=== PATIENT | female | born 1960 ===

== ENCOUNTER 2024-05-23 08:55 | Outpatient (AMB) | payer MEDICARE, BC, SELFPAY ==
--- NOTE | 2024-05-23 08:56 | A.OFFVIS_ITS ---
Vital Signs 05/23/24 09:06 Height 5 ft 2.5 in Weight 174 lb 2.643 oz BMI 31.3 BP 108/66 Blood Pressure Location Rt brachial Position Sitting Pulse 75 Pulse Source Pulse Oximeter Intake Visit Reasons: T2DM/CONFIRMED Intake Note: NEW Patient presents today to establish treatment for Type 2 Diabetes Mellitus: Last Diabetic eye exam was on: 05/2024, Glaucoma Last Podiatry exam was on: Does not see a Eyelet Operator Most recent HbA1c: 6.3%, 05/23/2024 Random Glucose- 119 mg/dL, Today Food Packer Required: No Accompanied by: Self / Same As Patient Allergies Penicillins Allergy (Mild, Verified 05/23/24 08:59) Unknown HPI Comments Details: This is a 63-year-old female with a past medical history of type 2 diabetes, hypertriglyceridemia, vitamin-D deficiency, cervical spondylosis and obesity presenting for a consult for diabetic management. She was diagnosed with diabetes about 6 years ago. She has a family history of diabetes (PGF and paternal aunt). No known family history of type 1 diabetes. Hemoglobin a1c today is 6.3%. Current medication regimen: Metformin 500 mg twice daily. Compliance issues: none Diet: Breakfast-Coffee with 1 tbsp of half and half and equal. She drinks 2 cups per day total. She doesn't follow a set schedule. Her is battling a rare form of sarcoma so they are busy with medical appointments. She eats a lot of veggies and salads. Occasionally eats a can of envelope folding machine operator boyardee if she is in a skinner. Eats chicken for protein. She might eat a lollipop during day. She enjoys all fruits except for misty. Drinks diet coke and no juices. She drinks alcohol rarely. She does not smoke. She lost weight initially with weight watchers, and she still following the diet, but she has gained 10 lb back, and she is very frustrated. She exercises when she is able to with her schedule. Hypoglycemia symptoms: None Hyperglycemia symptoms: None Eye exam: Up-to-date Microvascular complications: none Macrovascular complications: none Hypertension: No Hypertriglyceridemia treated with fenofibrate. LDL at goal <100. ROS: Constitutional: No unexplained weight loss, fever, chills or fatigue. Respiratory: No shortness of breath, cough or sputum production. Cardiovascular: No chest pain, chest pressure or chest discomfort. No palpitations or pedal edema. Gastrointestinal: No anorexia, nausea, vomiting or diarrhea. No abdominal pain. Neurologic: No headache, dizziness, syncope, unilateral weakness, ataxia, numbness or tingling in the extremities. Skin: No rash or wounds. Physical exam: Constitutional: Alert, in no distress. Eyes: Pupils are equal, round and reactive to ligh Neck: Supple, Full range of motion. No lymphadenopathy. No palpable thyroid masses. Respiratory: Clear to auscultation. Cardiovascular: S1 S2 regular. No murmurs. Right foot: Warm and well perfused. No clubbing, cyanosis or edema. DP pulse 3+. Intact vibratory sensation. Intact sensation to monofilament. No open wounds. Left foot: Warm and well perfused. No clubbing, cyanosis or edema. DP pulse 3+. Intact vibratory sensation. Intact sensation to monofilament. No open wounds. [facility] Medical History (Updated 05/23/24 @ 10:25 by PRINCE Mcneal) Hypertriglyceridemia Type II diabetes mellitus Encounter for screening for diabetes mellitus Vitamin D deficiency Screen for colon cancer Pain in upper limb Obesity, class 1 Hyperlipidemia Diabetes Cervical spondylosis without myelopathy Surgical History (Updated 05/23/24 @ 09:03 by JAMES Story) History of surgery Hx of shoulder surgery Family History (Updated 05/23/24 @ 09:04 by JAMES Story) Father No problems noted. Mother No problems noted. Social History (Updated 05/23/24 @ 09:04 by JAMES Story) Alcohol intake: current Alcohol intake frequency: holidays/special occasions only Physical Exam Vital Signs: Last Vital Signs Pulse 75 05/23/24 09:06 BP 108/66 05/23/24 09:06 BMI result Body Mass Index 31.3 Results AMB Hemoglobin A1c AMB Hemoglobin A1c 6.3 % Last Edit by JAMES Story on 05/23/24 09:35 Results Reviewed Results Reviewed: External labs 09/21/2023 TSH 2.23 Vitamin-D 55.8 Creatinine 0.7 Estimated GFR 98 AST 22 ALT 23 Alkaline phosphatase 55 Total cholesterol 167 Triglycerides 105 HDL cholesterol 51 LDL cholesterol 95 Hemoglobin A1c 6.1% Assessment & Plan Assessment & Plan (1) Type II diabetes mellitus: Code(s): E11.9 - Type 2 diabetes mellitus without complications Category: Medical Qualifiers: Diabetes mellitus complication status: without complication Diabetes mellitus halfway insulin use: without halfway use Qualified Code(s): E11.9 - Type 2 diabetes mellitus without complications Plan: In summary this is a 63-year-old female with controlled type 2 diabetes with no known complications. Discussed pathophysiology of Type II Diabetes Mellitus with the patient in detail.? 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 Discussed lifestyle modification with the patient. Provided patient with the diabetes.org website so she can access recipes and recommendations for diabetic patients. Recommended 30 minutes of moderately vigorous exercise 5 days per week to promote weight loss. Ordered microalbumin urine, B12 level since she is on metformin and screening BNP. If BNP is over 50 we will recommend echocardiogram. The patient has tried weight watchers with varying levels of success. She would like to try a GLP 1 and prefers an oral agent. I prescribed her dialysis. She denies contraindications to the medication. Side effects reviewed in detail. When she starts this she was instructed to decrease metformin to 500 mg once a day. If we titrates Ryebelsus to 7 mg or if she develops low blood sugar we will stop metformin. I provided the patient with a glucometer so she can monitor her blood sugar. Continue annual eye exams and regular foot exams. She is referred to the dietitian. Due to her schedule she will not be able to set this up until 2024, and the referral is dated as such. (2) Hypertriglyceridemia: Code(s): E78.1 - Pure hyperglyceridemia Category: Medical Plan: Well-controlled. Continue fenofibrate. (3) Obesity, class 1: Code(s): E66.811 - Obesity, class 1 Category: Medical Plan: See #1. Continue lifestyle modifications and start GLP 1. Plan Follow up in 4 weeks for a diabetic medication check. Orders: Orders B Type Natriuretic Peptide Today E11.9 - Type 2 diabetes mellitus without complications Microalbumin, Random (w Creat) Today E11.9 - Type 2 diabetes mellitus without complications Vitamin B12 Today E11.9 - Type 2 diabetes mellitus without complications AMB Hemoglobin A1c Today Z13.1 - Encounter for screening for diabetes mellitus Referrals Senior Art Director Nutrition Referral E11.9 - Type 2 diabetes mellitus without complications Medications: New blood sugar diagnostic (OneTouch Verio test strips) Use as directed to check blood glucose once daily for Type II diabetes mellitus. 100 ea 5RF blood-glucose meter (OneTouch Verio Flex Meter) Use as directed to check blood glucose once daily for Type II diabetes mellitus. 1 ea 0RF lancets (OneTouch Delica Plus Lancet) Use as directed to check blood glucose once daily for Type II diabetes mellitus. 100 ea 5RF semaglutide (Rybelsus) Administer on an empty stomach, =30 minutes before the first food, beverage, or other oral medications of the day with =4 oz of plain water only. 3 mg PO DAILY 30 days 30 tabs 0RF Patient Instructions: Diabetes.org If you experience low blood sugar, treat this by eating a chewable fruit candy like skittles or jelly beans (about 8 pieces), 4 ounces (1/2 cup) of fruit juice (not diet), 1 tablespoon of honey or 4 glucose tablets. If your blood sugar is under 50, take double the amount of one of the above. Recheck your blood sugar in 15 minutes. I sent a glucometer to your pharmacy. Fasting blood sugar target it 70-130. When you start Rybelsus 3 mg once daily, decrease Metformin to 1 tablet once daily. After the first month we will see if we can stop Metformin. You will be contacted to schedule the appointment the high speed operator. Please have labs done at [facility]. Printed orders given to you. Coding Level of Care Code New Pt Level 5 (84997) Complex EM visit Add On G2211 Diagnoses Type 2 diabetes mellitus without complication, without long-term current use of insulin E11.9 Diabetes mellitus complication status: without complication Diabetes mellitus halfway insulin use: without petroleum terminal plant operator use Hypertriglyceridemia E78.1 Obesity, class 1 E66.811 Time Spent (min) 68 Comment Direct patient care and education, chart review, completing documentation
[2024-05-23 09:06] VITALS: BP 108/66; PULSE 75; BMI 31.3
[2024-05-23 09:19] LABS: Glucose, Whole Blood 119 mg/dL (60-115)
== END 2024-05-23 10:02 | disposition home or self-care (01) ==
PROVIDERS: PCP Internal Medicine; Visit Provider Physician Assistant Medical
DX: E11.9 Type 2 diabetes mellitus without complications (principal); E78.1 Pure hyperglyceridemia; E66.811 Obesity, class 1; Z13.1 Encounter for screening for diabetes mellitus

== ENCOUNTER → 2024-05-23 08:55 | Outpatient (BNVA) | payer MEDICARE, BC, SELFPAY | PROVIDERS: PCP Internal Medicine; Visit Provider Physician Assistant Medical | DX: E11.9 Type 2 diabetes mellitus without complications (principal); E78.1 Pure hyperglyceridemia; E66.811 Obesity, class 1 | CPT/HCPCS: 82947; 83036; 99202 ==

== ENCOUNTER 2024-08-12 11:10 | Outpatient (AMB) | payer MEDICARE, BC, SELFPAY ==
--- NOTE | 2024-08-12 11:23 | A.OFFVIS_ITS ---
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 She was diagnosed with diabetes about 6 years ago. She has a family history of diabetes (PGF and paternal aunt). No known family history of type 1 diabetes. Since our visit in May, her on 06/20/24 from sarcoma. He had 5 different cancer battles in his lifetime. They were over 30 years. She is grieving. She feels well supported by friends and family. She has a daughter and cares for her daughter's Divehi bulldog. Hemoglobin a1c 6.3% 05/23/24. Current medication regimen: Metformin 500 mg once daily and Rybelsus 3 mg daily. Compliance issues: none She drinks alcohol rarely. She does not smoke. She initially had lost weight with weight watchers, but she gained back weight even though she was still following the diet. She lost 7 lb since she saw me in May related to decreased appetite secondary to grief. She would like to work on weight loss and has plans to see the compliance aide in 2024 and would like to increase Rybelsus. Hypoglycemia symptoms: None Hyperglycemia symptoms: None Eye exam: Up-to-date Microvascular complications: none Macrovascular complications: none Hypertension: No Hypertriglyceridemia treated with fenofibrate. LDL at goal <100. ROS: Constitutional: No unexplained weight loss Gastrointestinal: No anorexia, nausea, vomiting or diarrhea. No abdominal pain. Neurologic: No headache, dizziness, syncope, unilateral weakness, ataxia, numbness or tingling in the extremities. Skin: No rash or wounds. Physical exam: Constitutional: Alert, in no distress. Respiratory: Clear to auscultation. Cardiovascular: S1 S2 regular. No murmurs. [facility] Medical History (Updated 05/23/24 @ 10:25 by PRINCE Mcneal) Hypertriglyceridemia Type II diabetes mellitus Encounter for screening for diabetes mellitus Vitamin D deficiency Screen for colon cancer Pain in upper limb Obesity, class 1 Hyperlipidemia Diabetes Cervical spondylosis without myelopathy Surgical History (Updated 05/23/24 @ 09:03 by JAMES Story) History of surgery Hx of shoulder surgery Family History (Updated 05/23/24 @ 09:04 by JAMES Story) Father No problems noted. Mother No problems noted. Social History (Updated 05/23/24 @ 09:04 by JAMES Story) Alcohol intake: current Alcohol intake frequency: holidays/special occasions only Physical Exam Vital Signs: BMI result Body Mass Index 30.2 Assessment & Plan Assessment & Plan (1) Type II diabetes mellitus: Code(s): E11.9 - Type 2 diabetes mellitus without complications Category: Medical Qualifiers: Diabetes mellitus complication status: without complication Diabetes mellitus care home insulin use: without care home use Qualified Code(s): E11.9 - Type 2 diabetes mellitus without complications (2) Obesity, class 1: Code(s): E66.811 - Obesity, class 1 Category: Medical Plan In summary this is a 64-year-old female with controlled type 2 diabetes with no known complications. Discussed pathophysiology of Type II Diabetes Mellitus with the patient in detail.? I explained the care home risks and complications associated with uncontrolled diabetes including nephropathy, neuropathy, peripheral vascular disease, retinopathy, increased risk of heart disease and stroke.? Discussed lifestyle modification with the patient. Stop Metformin once you start Rybelsus 7 mg daily. Side effects reviewed. She had a glucometer to monitor her blood sugar. Reviewed target ranges. Continue annual eye exams and regular foot exams. She will see the compliance aide in 2024. Follow up in 6 weeks for a diabetic medication check. Medications: New semaglutide (Rybelsus) 7 mg PO DAILY 90 tabs 0RF Discontinued semaglutide (Rybelsus) Administer on an empty stomach, =30 minutes before the first food, beverage, or other oral medications of the day with =4 oz of plain water only. Discontinued Reason: Doctor's Order 3 mg PO DAILY 30 days 30 tabs 0RF Coding Level of Care Code Est Pt Level 4 (25507) Complex EM visit Add On G2211 Diagnoses Type 2 diabetes mellitus without complication, without long-term current use of insulin E11.9 Diabetes mellitus complication status: without complication Diabetes mellitus ad terminal makeup operator insulin use: without care home use Obesity, class 1 E66.811
[2024-08-12 11:24] VITALS: BP 102/68; PULSE 76; BMI 30.2
[2024-08-12 11:30] LABS: Glucose, Whole Blood 105 mg/dL (60-115)
== END 2024-08-12 11:55 | disposition home or self-care (01) ==
PROVIDERS: PCP Internal Medicine; Visit Provider Physician Assistant Medical
DX: E11.9 Type 2 diabetes mellitus without complications (principal); E66.811 Obesity, class 1

== ENCOUNTER → 2024-08-12 11:10 | Outpatient (BNVA) | payer MEDICARE, BC, SELFPAY | PROVIDERS: PCP Internal Medicine; Visit Provider Physician Assistant Medical | DX: E11.9 Type 2 diabetes mellitus without complications (principal); E66.811 Obesity, class 1; Z68.30 Body mass index [BMI] 30.0-30.9, adult | CPT/HCPCS: 82947; 99212 ==

== ENCOUNTER 2024-09-23 10:52 | Outpatient (AMB) | payer MEDICARE, BC, SELFPAY ==
--- NOTE | 2024-09-23 11:03 | MHC.OFFVIS ---
Vital Signs 09/23/24 11:07 Height 5 ft 2.5 in Weight 163 lb 12.855 oz BMI 29.5 BP 92/66 Blood Pressure Location Rt brachial Position Sitting Pulse 75 Pulse Source Pulse Oximeter Pulse Oximetry (%) 96 Oxygen Delivery Method Room Air Intake Visit Reasons: Type II diabetes Intake Note: Patient present today to follow up on Type 2 Diabetes Mellitus. Last Diabetic Eye exam: 05/2024, Glaucoma Last Podiatry Visit: Does not see a Chair Car Driver Random Glucose: 91 mg/dl HgA1C: 5.8% 09/23/24 Steak Sauce Maker Required: No Accompanied by: Self / Same As Patient Allergies Penicillins Allergy (Mild, Verified 09/23/24 11:07) Unknown HPI Comments Details: This is a 64-year-old female with a past medical history of type 2 diabetes, hypertriglyceridemia, vitamin-D deficiency, cervical spondylosis and obesity presenting for diabetic management. She was diagnosed with diabetes about 6 years ago. She has a family history of diabetes (PGF and paternal aunt). No known family history of type 1 diabetes. Her on 06/20/24 from sarcoma. He had 5 different cancer battles in his lifetime. They were over 30 years. She is grieving. She feels well supported by friends and family. She has a daughter and cares for her daughter's Sinhala bulldog. Hemoglobin a1c 5.8% today 09/23/24. Hemoglobin a1c 6.3% 05/23/24. All readings she wrote down from her glucometer are within target range. Current medication regimen: Rybelsus 7 mg. Metformin discontinued after Rybelsus was increased. Compliance issues: She is compliant. She endorses some nausea that comes and goes on rybelsus and very mild constipation. She drinks alcohol rarely. She does not smoke. She's lost 4 pounds since her visit on 08/12/24. Hypoglycemia symptoms: None Hyperglycemia symptoms: None Eye exam: Up-to-date Microvascular complications: none Macrovascular complications: none Hypertension: No Hypertriglyceridemia treated with fenofibrate. LDL at goal <100. ROS: Constitutional: No unexplained weight loss Gastrointestinal: No anorexia, nausea, vomiting or diarrhea. No abdominal pain. Neurologic: No headache, dizziness, syncope, unilateral weakness, ataxia, numbness or tingling in the extremities. Skin: No rash or wounds. Physical exam: Constitutional: Alert, in no distress. Respiratory: Clear to auscultation. Cardiovascular: S1 S2 regular. No murmurs. [facility] Medical History (Updated 05/23/24 @ 10:25 by PRINCE Mcneal) Hypertriglyceridemia Type II diabetes mellitus Encounter for screening for diabetes mellitus Vitamin D deficiency Screen for colon cancer Pain in upper limb Obesity, class 1 Hyperlipidemia Diabetes Cervical spondylosis without myelopathy Surgical History History of surgery Hx of shoulder surgery Family History Father No problems noted. Mother No problems noted. Social History Alcohol intake: current Alcohol intake frequency: holidays/special occasions only Physical Exam Vital Signs: Last Vital Signs Pulse 75 09/23/24 11:07 BP 92/66 09/23/24 11:07 Pulse Ox 96 09/23/24 11:07 Oxygen Delivery Method Room Air 09/23/24 11:07 BMI result Body Mass Index 29.5 Results AMB Hemoglobin A1c AMB Hemoglobin A1c 5.8 % Last Edit by JAMES Chaparro on 09/23/24 11:35 Results Reviewed Results Reviewed: Laboratory Last Values Glucose (Clinic) 91 mg/dL (60-115) 09/23/24 11:14 Hgb A1c (Clinic) 5.8 % (4.0-6.0) 09/23/24 11:17 Assessment & Plan Assessment & Plan (1) Type II diabetes mellitus: Code(s): E11.9 - Type 2 diabetes mellitus without complications Category: Medical Qualifiers: Diabetes mellitus complication status: without complication Diabetes mellitus residential insulin use: without bus and rail operator use Qualified Code(s): E11.9 - Type 2 diabetes mellitus without complications Plan In summary this is a 64-year-old female with controlled type 2 diabetes with no known complications. Discussed pathophysiology of Type II Diabetes Mellitus with the patient in detail.? I explained the residential risks and complications associated with uncontrolled diabetes including nephropathy, neuropathy, peripheral vascular disease, retinopathy, increased risk of heart disease and stroke.? Discussed lifestyle modification with the patient. We discussed switching to another GLP 1, but she wants to give it a bit more time to see if side effects improved since she has only taken it for a month. We discussed meals from fluids by 30 minutes and eating smaller meals and stopping eating when she feels full to avoid nausea. I will prescribe ondansetron to use as needed for the next month for nausea, but if it persists then I will change her to a different medication or reduce the dosage. She had a glucometer to monitor her blood sugar. Reviewed target ranges. We reviewed treatment of hypoglycemia. Written instructions given to patient. If she experiences low blood sugars she was instructed to call to reduce the dose of her medication. Continue annual eye exams and regular foot exams. She will see the advice line rn in 2024. No fib 4 value on file. She will have lab work drawn. Follow up in 3 months for type 2 diabetes. Orders: Orders AMB Hemoglobin A1c Today E11.9 - Type 2 diabetes mellitus without complications Platelet Count Today E11.9 - Type 2 diabetes mellitus without complications Comprehensive Met. Panel Today E11.9 - Type 2 diabetes mellitus without complications Referrals [employer] Senator Nutrition Referral E11.9 - Type 2 diabetes mellitus without complications Medications: New ondansetron HCl 4 mg PO Q8H PRN 30 tabs 0RF nausea and vomiting Refilled semaglutide (Rybelsus) 7 mg PO DAILY 90 tabs 1RF Patient Instructions: Hemoglobin a1c 5.8% today 09/23/24. Hemoglobin a1c 6.3% 05/23/24. All recorded blood sugars reviewed are within the target range. If you experience low blood sugar, treat this by eating a chewable fruit candy like skittles or jelly beans (about 8 pieces), 4 ounces (1/2 cup) of fruit juice (not diet), 1 tablespoon of honey or 4 glucose tablets. If your blood sugar is under 55, take double the amount of one of the above. Recheck your blood sugar in 15 minutes. If you experience low blood sugars please call me so I can reduce the dose of Rybelsus. Coding Level of Care Code Est Pt Level 4 (80981) Complex EM visit Add On G2211 Diagnoses Type 2 diabetes mellitus without complication, without long-term current use of insulin E11.9 Diabetes mellitus complication status: without complication Diabetes mellitus bus and rail operator insulin use: without residential use
[2024-09-23 11:07] VITALS: BP 92/66; PULSE 75; O2SAT 96; BMI 29.5
[2024-09-23 11:19] LABS: Glucose, Whole Blood 91 mg/dL (60-115)
== END 2024-09-23 11:39 | disposition home or self-care (01) ==
PROVIDERS: PCP Internal Medicine; Visit Provider Physician Assistant Medical
DX: E11.9 Type 2 diabetes mellitus without complications (principal)

== ENCOUNTER 2024-09-23 11:43 | Outpatient (REF) | payer MEDICARE, SELFPAY ==
--- OUTSIDE RECORDS SUMMARY | 2024-09-23 13:19 | XMS_ITS | Patient Health Record ---
Author Organization [facility] Address [address] [place] [address] Care Team Providers Care Owner/Photographer Name Role Phone Oneida Gomez Unavailable [phone] Allergies Allergen (clinical drug ingredient) Drug/Non Drug Allergy documented on EMR Reaction Allergy Type Onset Date Status Penicillin RASH, TIGHTNESS OF JOINTS Drug Allergy Active Reason For Referral No Information Medications Medication SIG (Take, Route, Frequency, Duration) Notes Start Date End Date Status Fenofibrate Pt not sure of dose Active Aspirin 81 MG 1 tablet Orally Once a day Active NexIUM 2 DAILY Active Neurontin 1500 Active Social History Tobacco Use: Social History Observation Description Date Details (start date - stop date) Former Smoker NA - NA Tobacco Use/Smoking Question Answer Notes Are you a former smoker How long has it been since you last smoked? 5-10 years Alcohol Screen (Audit-C) Question Answer Notes Did you have a drink contain ing alcohol in the past year? Yes How often did you have a dri nk containing alcohol in the past year? Monthly or less (1 point) How many drinks did you have on a typical day when you were drinking in the past year? 1 or 2 drinks (0 point) How often did you have 6 or more drinks on one occasion in the past year? Never (0 point) Points 1 Interpretation Negative Plan Of Treatment Pending Test Test Name Order Date THIN PREP,HPV,CHRISTEN IF HPV+ (>29YR)(SCRN) 07/10/2017 Next Appt Details Provider Name:Oneida au, 12/11/2024 02:00:00 PM, [address], [address], [place], [address], Insurance Providers Payer Name Payer Address Payer Phone Subscriber Number Group Number Insured Name Patient Relationship to Insured Coverage Start Date Coverage End Date MEDICARE [address] [place] [id number] [phone] JAKOB ENCARNACION Self - patient is the insured BC OF [facility] [address] [place] [address] [id number] GABRIELA ENCARNACION Spouse - patient is the spouse of the insured Medical (General) History Surgical History Surgery Date(Month/Year) SHOULDER SUGERY AND AGAIN IN 2010 2009 ARM SURGERY - ULNA NERVE AND REPEATED IN 2004 & 2006 2004 SHAVED BONE - LITTLE TOE NODE REMOVED - THROAT Hospitalization History Reason Date(Month/Year) CHILD
[2024-09-23 13:28] LABS: Platelet Count 340 X10*3/uL (160-400)
[2024-09-23 13:43] LABS: Alanine Aminotransferase 30 U/L (0-31); Albumin Level 4.3 g/dL (3.5-5.0); Alkaline Phosphatase 59 U/L (39-117); Anion Gap 9 (12-20); Aspartate Amino Transferase 32 U/L (5-31); Bilirubin Total 0.6 mg/dL (0.0-1.0); Blood Urea Nitrogen 16 mg/dL (9-16); Calcium 9.3 mg/dL (8.4-10.2); Carbon Dioxide 24 mmol/L (22-29); Chloride 111 mmol/L (96-108); Estimated Glomerular Filt Rate > 60; Glucose Random 96 mg/dL (60-115); Potassium 4.4 mmol/L (3.3-5.1); Sodium 140 mmol/L (135-145); Total Protein 7.2 g/dL (6.5-8.0)
== END 2024-09-23 11:44 | disposition home or self-care (01) ==
LOC: HO.10HDL 11:43
PROVIDERS: Visit Provider Physician Assistant Medical
DX: E11.9 Type 2 diabetes mellitus without complications (principal)
CPT/HCPCS: 36415; 80053; 82947; 83036; 85049; 99212

== ENCOUNTER 2024-12-23 11:02 | Outpatient (AMB) | payer MEDICARE, BC, SELFPAY ==
--- NOTE | 2024-12-23 11:04 | A.OFFVIS_ITS ---
Vital Signs 12/23/24 11:06 Height 5 ft 2.5 in Weight 153 lb 14.122 oz BMI 27.7 BP 92/60 Blood Pressure Location Rt brachial Position Sitting Pulse 86 Pulse Source Pulse Oximeter Pulse Oximetry (%) 97 Oxygen Delivery Method Room Air Intake Visit Reasons: Type 2 DM Intake Note: Patient present today to follow up on Type 2 Diabetes Mellitus. Last Diabetic Eye exam: 05/2024, Glaucoma Last Podiatry Visit: Does not see a Employee Benefits Insurance Agent Random Glucose: 93 mg/dl HgA1C: 5.8% 12/23/2024 Manager Spring Required: No Accompanied by: Self / Same As Patient Allergies Penicillins Allergy (Mild, Verified 12/23/24 11:07) Unknown HPI Comments Details: This is a 64-year-old female with a past medical history of type 2 diabetes, hypertriglyceridemia, vitamin-D deficiency, cervical spondylosis and obesity presenting for diabetic management. She was diagnosed with diabetes about 6.5 years ago. She has a family history of diabetes (PGF and paternal aunt). No known family history of type 1 diabetes. Her on 06/20/24 from sarcoma. He had 5 different cancer battles in his lifetime. They were over 30 years. She is grieving. She feels well supported by friends and family. She has a daughter and cares for her daughter's Indonesian bulldog. She is walking for exercise. Hemoglobin a1c 5.8% today. All readings she wrote down from her glucometer are within target range. See scanned report. Current medication regimen: Rybelsus 7 mg. Metformin discontinued after Rybelsus was increased. Compliance issues: She is compliant. She endorses some nausea that comes and goes on rybelsus. She drinks alcohol rarely. She does not smoke. She's lost 21 lb since June 2024. She is very happy with her progress. Hypoglycemia symptoms: None Hyperglycemia symptoms: None Eye exam: Hf-wi-hcha-she has to have a stent placed for glaucoma in her right eye. They will discuss this further at her follow up in February. She goes to [facility]. She has no ophthalmic complications from diabetes. Microvascular complications: none Macrovascular complications: none Hypertension: No Hypertriglyceridemia treated with fenofibrate. LDL at goal <100. ROS: Constitutional: No unexplained weight loss Gastrointestinal: No anorexia, nausea, vomiting or diarrhea. No abdominal pain. Neurologic: No headache, dizziness, syncope, unilateral weakness, ataxia, numbness or tingling in the extremities. Skin: No rash or wounds. Physical exam: Constitutional: Alert, in no distress. Respiratory: Clear to auscultation. Cardiovascular: S1 S2 regular. No murmurs. [facility] Medical History (Updated 05/23/24 @ 10:25 by PRINCE Mcneal) Hypertriglyceridemia Type II diabetes mellitus Encounter for screening for diabetes mellitus Vitamin D deficiency Screen for colon cancer Pain in upper limb Obesity, class 1 Hyperlipidemia Diabetes Cervical spondylosis without myelopathy Surgical History History of surgery Hx of shoulder surgery Family History Father No problems noted. Mother No problems noted. Social History Alcohol intake: current Alcohol intake frequency: holidays/special occasions only Physical Exam Vital Signs: BMI result Body Mass Index 27.7 Results AMB Hemoglobin A1c AMB Hemoglobin A1c 5.8 % Last Edit by JAMES Chaparro on 12/23/24 11:24 Results Reviewed Results Reviewed: Laboratory Last Values Glucose (Clinic) 93 mg/dL (60-115) 12/23/24 11:12 External labs 09/21/2023 TSH 2.23 Vitamin-D 55.8 Creatinine 0.7 Estimated GFR 98 AST 22 ALT 23 Alkaline phosphatase 55 Total cholesterol 167 Triglycerides 105 HDL cholesterol 51 LDL cholesterol 95 Hemoglobin A1c 6.1% Assessment & Plan Assessment & Plan (1) Type II diabetes mellitus: Code(s): E11.9 - Type 2 diabetes mellitus without complications Category: Medical Qualifiers: Diabetes mellitus continuous churn buttermaker insulin use: without fdc use Diabetes mellitus complication status: without complication Qualified Code(s): E11.9 - Type 2 diabetes mellitus without complications Plan In summary this is a 64-year-old female with controlled type 2 diabetes with no known complications. Discussed pathophysiology of Type II Diabetes Mellitus with the patient in detail.? I explained the fdc risks and complications associated with uncontrolled diabetes including nephropathy, neuropathy, peripheral vascular disease, retinopathy, increased risk of heart disease and stroke.? Discussed lifestyle modification with the patient. Continue Rybelsus 7 mg daily. She had a glucometer to monitor her blood sugar. Reviewed target ranges. We reviewed treatment of hypoglycemia. If she experiences low blood sugars she was instructed to call to reduce the dose of her medication. No fib 4 value on file. She will have lab work drawn. Follow up in April 2025 for type 2 diabetes. Orders: Orders Platelet Count Today E11.9 - Type 2 diabetes mellitus without complications AMB Hemoglobin A1c Today E11.9 - Type 2 diabetes mellitus without complications Creatinine Today E11.9 - Type 2 diabetes mellitus without complications Alanine Aminotransferase Today E11.9 - Type 2 diabetes mellitus without complications Aspartate Amino Transferase Today E11.9 - Type 2 diabetes mellitus without complications Lipid Panel Today E78.5 - Hyperlipidemia, unspecified Medications: Refilled semaglutide (Rybelsus) 7 mg PO DAILY 90 tabs 1RF Coding Level of Care Code Est Pt Level 4 (06309) Complex EM visit Add On G2211 Diagnoses Type 2 diabetes mellitus without complication, without long-term current use of insulin E11.9 Diabetes mellitus fdc insulin use: without continuous churn buttermaker use Diabetes mellitus complication status: without complication
[2024-12-23 11:06] VITALS: BP 92/60; PULSE 86; O2SAT 97; BMI 27.7
[2024-12-23 11:18] LABS: Glucose, Whole Blood 93 mg/dL (60-115)
--- OUTSIDE RECORDS SUMMARY | 2024-12-23 12:30 | XMS_ITS | Patient Health Record ---
Author Organization [facility] Address [address] [place] [address] Care Team Providers Care Microsoft Dynamics Ax Consultant Name Role Phone JUAN ROSS, OTIS Primary Care Provide Oneida Carter Unavailable [phone] Allergies Allergen (clinical drug ingredient) Drug/Non Drug Allergy documented on EMR Reaction Allergy Type Onset Date Status Penicillin Rash/Joint Aches Drug Allergy Active Results Component Value Reference Range Notes PDF Report Reviewed date:12/17/2024 01:35:11 AM Interpretation: Performing Lab:[facility], [address], [address], [place], Phone - [phone], Director - [facility] Notes/Report: Clinical Information:vag/cerv [id number] Dates / Results....07/10/2017 Other..............Post Menopausal No. of containers..01 ThinPrep Vial [id number] IGP No Culture 30 Plus Reviewed date:12/17/2024 01:36:18 AM Interpretation: Performing Lab:[facility], [address], [address], [place], Phone - [phone], Director - [facility] Notes/Report: Clinical Information:vag/cerv [id number] Dates / Results....07/10/2017 Other..............Post Menopausal No. of containers..01 ThinPrep Vial DIAGNOSIS: NEGATIVE FOR IN TRAEPITHELIAL LESION OR MALIGNANCY. Specimen adequacy: Satisfactory for evaluation. Endocervical and/or squamous metaplastic cells (endocervical component) are present. Clinician provided ICD10: Z0 1.419 Performed by: Dejon feldman, X Ray Developing Machine Operator (ASCP) . . Note: The Pap smear is a screening test designed to aid in the detection of premalignant and malignant conditions of the uterine cervix. It is not a diagnostic procedure and should not be used as the sole means of detecting cervical cancer. Both false-positive and false-negative reports do occur. . Test Methodology: This liquid based ThinPrep(R) pap test was screened with the use of an image guided system. HPV Aptima Negative Negative This nucleic acid amplification test detects fourteen high-risk HPV types (16,18,31,33,35,39,45,51,52,56,5 8,59,66,68) without differentiation. HPV Genotype Reflex Criteria not met, HPV Genotype not performed. Reason For Referral No Information Medications Medication SIG (Take, Route, Frequency, Duration) Notes Start Date End Date Status Gabapentin 600 MG TAKE 1 TABLET BY MOUTH TWICE A DAY Oral for 30 Days Also 300mg Active Brimonidine Tartrate 0.2 % INSTILL 1 DROP INTO BOTH EYES 3 TIMES A DAY Ophthalmic for 50 Days Active Fenofibrate Pt not sure of dose Active Rybelsus 7 MG TAKE 1 TABLET BY MOUTH ONCE DAILY Oral for 90 Days Active Social History Tobacco Use: Social History Observation Description Date Details (start date - stop date) Former Smoker NA - NA Sexual History Question Answer Notes Had sex in the past 12 months (vaginal, oral, or anal)? No AUDIT-C (Standard) Question Answer Notes Did you have a drink containing alcohol in the p ast year? No Points 0 Interpretation Negative Tobacco Control (Standard) Question Answer Notes Tobacco use: Former smoker How long has it been since you last smoked? Isaias ter than 10 years Vital Signs Temperature 97.6 degrees Fahrenheit 12/11/2024 Blood pressure diastolic 82 mm Hg 12/11/2024 Height 5 ft 2 in in 12/11/2024 Blood pressure systolic 122 mm Hg 12/11/2024 Weight 152 lbs 12/11/2024 BMI 27.8 kg/m2 12/11/2024 Encounters Encounter Location Date Provider Diagnosis [address] [place] [address] 12/11/2024 Oneida Gomez Encounter for gynecological examination (general) (routine) without abnormal findings Z01.419 and Encounter for screening mammogram for malignant neoplasm of breast Z12.31 Assessments Encounter Date Diagnosis (ICD Code) Assessment Notes Treatment Notes Treatment Clinical Notes Section Notes 12/11/2024 Encounter for gynecological examination (general) (routine) without abnormal findings (ICD-10 - Z01.419) PAP TEST WITH HPV TYPING WAS OBTAINED. WE WILL GET HER BMD RESULTS. ADEQUATE CALCIUM AND VIT D. WEIGHT BEARING EXERCISES. 12/11/2024 Encounter for screening mammogram for malignant neoplasm of breast (ICD-10 - Z12.31) REGULAR MAMMOGRAMS AND SBE'S WERE RECOMMENDED. Plan Of Treatment Pending Test Test Name Order Date MAMMOGRAM, SCREENING 12/11/2024 THIN PREP,HPV,CHRISTEN IF HPV+ (>29YR)(SCRN) 07/10/2017 MM Digital Mammo Screening 12/11/2024 Insurance Providers Payer Name Payer Address Payer Phone Subscriber Number Group Number Insured Name Patient Relationship to Insured Coverage Start Date Coverage End Date MEDICARE [address] [facility], [place] [id number] JAKOB ENCARNACION Self - patient is the insured 3 [employer] [place] [address] [place] [address] [id number] JAKOB ENCARNACION Self - patient is the insured Medical (General) History Medical History History ICD Code Disorder of bone density and structure, unspecified M85.9 Type 2 diabetes mellitus without complic ations E11.9 Surgical History Surgery Date(Month/Year) Shoulder Surgery 2009 and 2010 2009 Shaved Bone Baby Toe Polyp Removed From Throat Right Ulnar Nerve Surgery x 3 Left Ulnar Nerve Surgery Colonoscopy Hospitalization History Reason Date(Month/Year) See Surgical Hx 1 Vaginal Delivery
--- OUTSIDE RECORDS SUMMARY | 2024-12-23 12:30 | XMS_ITS | Data Portability ---
Author Organization [facility], [facility] Address [address] [place] [address] Care Team Providers Care Clinical Informatics Manager Name Role Phone PADMINI KATALINA On Air Personality Assessment Encounter Date Assessment Date Assessment LastModified by Organization Details LastModified Time 06/05/2017 06/05/2017 impression: She has ongoing right shoulder pain. She has had 2 prior surgeries. Differential includes rotator cuff insufficiency fibrosis and mild arthrosis. She does not have frozen shoulder. She certainly does not have signs of an extensive her large rotator cuff tear. She has ongoing recurrent ulnar neuritis with cubital tunnel syndrome despite 3 prior surgeries. Again I do not have any operative reports concerning the elbow or shoulder. Plan: I would recommend a new MRI on the shoulder. She has not had one in over 3 years and I think this would be helpful toward differentiating some of the sources of her pain. Additionally I would recommend a cervical spine neck evaluation by a train physiatry is looking given impartial opinion concerning the neck. She may require a new EMG for the ulnar nerve. This can be difficult if the nerve has been transposed. In terms of the elbow I would refer her to one of my colleagues who is microsurgical trained. Any type of intervention at this point would require possible microdissection and nerve wraps which I no longer do. I would be happy to take care of her for her shoulder and she and I discussed that. We will see her back after the MRI scan. She should remain on her light duty restrictions. Not available 06/07/2017 07:53:57 11/12/2017 11/12/2017 impression: Smal l rotator cuff tear. This is likely a recurrence. She also has cervical spondylosis and ongoing ulnar neuritis. Plan: We discussed all the findings in detail. Specifically we talked about the shoulder. She has had prolonged nonoperative care. We discussed whether she would like to move forward with another arthroscopy. She was here today with her . They elected at this point to hold off. I would advise her to obtain treatment and evaluation for her cervical spine. I have given her some references for her elbow. I would be happy to assist her with her shoulder in any way possible. They were thoroughly educated on the MRI scan and we reviewed the findings. Consider follow-up in the next 4-6 months to monitor the situation. Not available 11/12/2017 18:30:28 11/29/2017 11/29/2017 Impression: Rule out right cervical radiculopathy with chronic radiating pain into the scapula. Plan: MRI of the cervical spine and follow to determine the treatment [email or web address] Not available 11/29/2017 13:05:49 Plan of Treatment Reminders Order Date Submit Date Provider Last Modified By Organization Details Last Modified Time Details Appointments None recorded. Lab None recorded. Referral None recorded. Procedures None recorded. Surgeries None recorded. Imaging MRI, cervical spine, w/o contrast - PLEASE AUTHORIZE AND CALL PATIENT WITH APPOINTMEN T 2017 018 [facility] ([facility]), [address], [place], [address], 8 11:10:28 XR, shoulder, 2 or more view 2016 017 Not available 7 09:36:11 MRI, shoulder, w/o contrast - chronic pain for years, RCR and prior surgery X2.-PLEASE CALL PATIENT FOR SCHEDULING 2016 017 [facility] ([facility]), [address], [place], [address], 8 12:03:02 Medication Orders None recorded. Patient TargetsNo targets recorded. Patient InstructionsNo instructions recorded. Reason for Referral None Reported. Results Created Date Observation Date Name Description Value Unit Range Abnormal Flag Note LastModifiedBy Organization Detail LastModifiedTime 06/05/20 17 RT shoul haley No observ ation record ed. [facility] [address], [place], [address] 06/05/2017 17:40:28 11/06/19 18 11/02/2017 MRI, gurvinder de leon, w/o contr ast [facility] MRI - [facility] Access ion Number : [id number] Niya cerda Name : Bo Hinkle Record Number : [id number] Date of : 1959 Date of Exam : 2017 Referr ing Physic ayana : [facility]ON [facility]BBS [facility] [address] [place] [address] [place] [address] Exam : MR - SHOULD ER (C-) CPT 74887 - RIGHT Room Descri ption : [facility] Espr 2 1.5 Techni que : Ax PD Fsat, Cor T2, Cor PD Fsat, Sag PD Fsat, Sag T1 Final Report SHOULD ER MRI CLINIC AL HISTOR Y: Pain. Histor y of rotato r cuff repair and subacr omial decomp ressio n revisi on 2009. COMPAR AMIRA: 2014 FINDIN GS: Postop erativ e change s at the acromi oclavi cular joint. Previo usly descri bed small full-t hickne ss tear within supras pinatu s tendon fibers is unchan ged. The infras pinatu s tendon is intact . The teres minor tendon is intact . The subsca pulari s tendon is intact . The long head of the biceps tendon is intact . The glenoi d labrum is not well evalua gavin on this non-ar throgr am MR, but appear s grossl y intact . Impres reji: Previo usly noted small full-t hickne ss tear within supras pinatu s tendon fibers is unchan ged since 2012. ----- PHYSIC AYANA : RAINA RAMIREZ (Signa turema on file) 2017 [facility] ([facility]) [address], [place], [address], 11/07/2017 08:23:37 11/30/19 18 C spine No observ ation record ed. [facility] [address], [address] 12/04/2017 12:00:01 Result Notes None recorded. Problems Name Problem SNOMED Code Status Onset Date Resolution Date Notes Provider Name and Address Organization Details Recorded Time No current problems or disability 973364932 [facility] 8 15:13:17 Cervical radiculopathy 84544108 Active 2017 Ofelia SAAVEDRA MD [address] [place] [address] [address], [place], [address], [facility] 8 11:52:56 Problem Notes None recorded. Procedures Surgical History None recorded. Imaging Results Imaging Date Name Status LastModified by Organiz ation Details LastModified Time 06/05/2017 [facility] [address] [place] [address], [address] 06/05/2017 17:40:28 11/02/2017 MRI, shoulder, w/o contrast completed [facility] ([facility]) [address] [facility], [place], [address], 11/07/2017 08:23:37 11/29/2017 C spine completed [facility] [address] [place] [address], [address] 12/04/2017 12:00:01 Procedure Notes None recorded. Medical Equipment None Reported. Allergies Allergen ID Allergen Name Allergen Category Reaction Reaction Severity Criticality Documentation Date Start Date Code Code System Note Provider Name and Address Organization Details Recorded Time 229037 Product containin g penicilli n (product) medicatio n Not available Not available Not available 06/05/2017 98950 8001 SNOMED SHARRON DOBBS MD 20 [facility],[address], [place], [address], [facility] 7 16:55:39 Medications Name Sig Start Date Stop Date Status Note LastModified by Organization Details LastModified Time fenofibrate 160 mg tablet active Not Available Not Availabl e Not Available aspirin active Not Available Not Avail able Not Available Neurontin active Not Available Not Tamara ilable Not Available Nexium active Not Available Not Availa ble Not Available Vitamin D3 50 mcg (2,000 unit) capsule Take by oral route. active Not Available Not Available No t Available Vitals Date Recorded Body height Provider Name an d Address Organization Details Last Updated DateTime 06/05/2017 158.75 cm SHARRON DOBBS MD 20 [facility],[address], [address] 06/05/2017 16:55:28 Date Recorded Body height Body temperature Provider N amelia and Address Organization Details Last Updated DateTime 11/12/2017 158.75 cm 96.8 [degF] Nabil Yuliya [place] [facility] 11/12/2017 15:13:14 Date Recorded Pain severity - 0-10 verbal numeric rating [Score] - Reported Provider Name and Address Organization Details Last Updated DateTime 11/12/2017 7 Not Available [facility] 8 05:59:06 Date Recorded Body height Body mass index (BMI) Body weight Body temperature Provider Name and Address Organization Details Last Updated DateTime 11/29/2017 158.75 cm 32 kg/m2 48461.44 g 98.3 [degF] Sindy Minor [facility] 11/29/2017 11:35:21 Date Recorded Pain severity - 0-10 verbal numeric rating [Score] - Reported Provider Name and Address Organization Details Last Updated DateTime 11/29/2017 8 Not Available [facility] 8 05:59:08 Social History Question Answer Notes LastModified by Organizat ion Details LastModified Time Tobacco Smoking Status Former Smoker SHARRON DOBBS MD [address] [place] [address],[address], [address] 06/05/2017 16:55:47 How Many Days In The Past Year Have You Had A Heavy Drinking Consumption (4+ Female, 5+ Male)? 0 Information no t available 06/05/2017 What Was The Date Of Your Most Recent Tobacco Screening? 11/29/2017 Information not available 03/05/2019 Sex: Unknown Functional Status Question Answer Note LastModified by Organizat ion Details LastModified Time What is your level of alcohol consumption? Occasional Information not available 06/05/2017 Mental Status None recorded. Family History Nothing Reported. Medical History Condition Response Diabetes N Pacemaker N Heart Disease N Cancer N Hypertension N Blood Clot N Gynecological HistoryNo gynecological history recorded. Obstetrics History GPAL:G 0 P 0 0 0 0 Past Encounters Encounter ID Performer Location Encounter Start Date Encounter Closed Date Diagnosis/Indication Diagnosis SNOMED-CT Code Diagnosis ICD10 Code Diagnosis Note [id number] SHARRON DOBBS MD [address] [address] 06/05/2017 16:07:02 06/05/2017 17:48:39 Pain of shoulder region 78620632 M25.511 Neuritis o f right ulnar nerve 3710320597 2941801 G56.21 [id number] SHARRON DOBBS MD [address], [place] [address] [place] [address] 11/12/2017 14:00:25 11/12/2017 15:36:46 Rupture of rotator cuff of right shoulder 4428061461 3337940 M75.101 Cervical s pondylosis without myelopathy 346262374 M47.812 [id number] L LENA SAAVEDRA MD [address], [place] [address] [place] [address] 11/29/2017 10:32:31 11/29/2017 11:50:48 Cervical radiculopathy 05033581 M54.12 Health Concerns Section Related Observation LastModified by Organization Detai ls LastModified Time None Recorded Concern Status LastModified by Organization Details LastModified Time None Recorded Advance Directives Directive None Recorded Payers Insurance Date Sequence Insurance Name Policy Number Policy Salas Covered Member ID Salas Member ID Guarantor Name 04/09/2018 [employer] Bo Kem Notes Date Note Type Note Provider Name and Address Organization Details Recorded Time 06/05/2017 text/html Bo is a pleas ant 56-year-old right-hand dominant woman who is here today for further evaluation on complex injuries to her shoulder and elbow. She had a work-related injury some time ago. In summary she has undergone 2 shoulder surgeries in the [place] area since [address] Jack. She also has undergone 3 elbow surgeries for ulnar nerve release. She reports that she has had one of the surgeries on the elbow with Dr. Lubin in 2 with the surgeries with Dr. Truman Gordon at [facility]. She has had the elbow surgery with ulnar nerve transposition twice. She has some discomfort and continued pain with the elbow. Her main issue for today's the shoulder. She does not have any recent imaging. It appears that she had a rotator cuff repair as well as a decompression. I do not have any of the operative reports. She has not had any cervical spine evaluation. She has been working in light duty with restrictions. Her injury actually dates back to 2001 for the ulnar nerve in 2007 for the shoulder. 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 She is in overall good health. Current medications include Neurontin. She appears to have about 5 out of 10 pain. SHARRON DOBBS MD 20 [facility],[address], [place], [address], [facility] 06/07/2017 07:54:28 11/12/2017 text/html Nestor is here f or follow-up predominantly for her right shoulder. 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 She had 2 prior surgeries, the last one was in 2010 with [facility] in [place]. She had an MRI scan performed which she is here for review today. Overall the shoulder bothers her a bit but I suspect she has more cervical spine issues and referred pain. She notes pain in the back of the neck radiating into the scapula. SHARRON DOBBS MD 20 [facility],[address], [place], [address], [facility] 11/12/2017 18:31:08 11/29/2017 text/html This is a 57-year-old comes in today at the request of Dr. Dobbs for consultation with complaints of a 4 year history of right-sided neck pain with some radiation into the scapula. She's had multiple issues with her elbow and her shoulder. She is status post ulnar nerve surgery at the elbow ? ? 3 . She has long-standing complaints of paresthesias in her hand and fingers and a burning type sensation in her neck. She states that her fifth digit has some reduced sensation. Ofelia SAAVEDRA MD [address] [facility],[address], [place], [address], [facility] 11/29/2017 13:06:04 OBGyn Episode No OBEpisode recorded.
--- OUTSIDE RECORDS SUMMARY | 2024-12-23 12:30 | XMS_ITS ---
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 :1960???Age:63 Y???Sex:Female D ate:03/19/2024 Address:[address] [place], [place] [phone] Pcp:OTIS MARTINEZ MD Subjective: * Chief Complaints: * ???1. 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 * Medical History:? Objective: * Vitals:? Assessment: Plan: * Treatment: * Images: Billing Information: * Visit Code:? * Procedure Codes:? * Electronic signature of Karl Gomez MD on 12/23/2024 at 12:29 PM EDT Sign off status: Pending * Appointment Provider:?Oneida Gomez M.D. Date:?03/19/2024 Generated for Printi ng/Farylang/eTransmitting on:?12/23/2024 12:29 PM EDT
--- OUTSIDE RECORDS SUMMARY | 2024-12-23 12:30 | XMS_ITS ---
Author Organization [facility] Address [address] [address] Care Team Providers Care Cover Remover Name Role Phone JUAN ROSS, OTIS Primary Care Provide Oneida Carter Unavailable [phone] REASON FOR VISIT Annual (YELLOW FORM DONE) Encounters Encounter Location Date Provider Diagnosis [address] [address] 08/22/2024 Oneida Gomez Plan Of Treatment No Information Progress Notes * CHIOMA ENCARNACIONINDOB: 8 (64 yo F)Acc No.[id number]:08/22/2024 PROGRESS NOTES Patient:?JAKOB ENCARNACION Appointment Provider:?Oneida au M.D. :1960???Age:64 Y???Sex:Female D ate:08/22/2024 Address:[address] [place], [place] [address] Pcp:OTIS MARTINEZ MD Subjective: * Chief Complaints: * ???1. Annual (YELLOW FORM DO NE). * Medical History:? Objective: * Vitals:? Assessment: Plan: * Treatment: * Images: Billing Information: * Visit Code:? * Procedure Codes:? * Electronic signature of Karl Gomez MD on 12/23/2024 at 12:29 PM EDT Sign off status: Pending * Appointment Provider:?Oneida Gomez M.D. Date:?08/22/2024 Generated for Kenna rider/Eloy/Elana on:?12/23/2024 12:29 PM EDT
== END 2024-12-23 11:41 | disposition home or self-care (01) ==
LOC: HO.ENCR 11:02
PROVIDERS: PCP Internal Medicine; Visit Provider Physician Assistant Medical
DX: E11.9 Type 2 diabetes mellitus without complications (principal)

== ENCOUNTER → 2024-12-23 11:02 | Outpatient (BNVA) | payer MEDICARE, BC, SELFPAY | PROVIDERS: PCP Internal Medicine; Visit Provider Physician Assistant Medical | DX: Z13.89 Encounter for screening for other disorder (principal) | CPT/HCPCS: 82947; 83036; 99212 ==

== ENCOUNTER 2024-12-23 11:43 | Outpatient (REF) | payer MEDICARE, BC, SELFPAY ==
[2024-12-23 13:28] LABS: Platelet Count 328 X10*3/uL (160-400)
[2024-12-23 14:16] LABS: Alanine Aminotransferase 24 U/L (0-31); Aspartate Amino Transferase 29 U/L (5-31); Cholesterol 167 mg/dL (<200); Estimated Glomerular Filt Rate > 60; HDL Cholesterol 48 mg/dL (>40); LDL Cholesterol Calculated 103 mg/dL (<100); Triglycerides 84 mg/dL (<150)
== END 2024-12-23 11:44 | disposition home or self-care (01) ==
LOC: HO.10HDL 11:43
PROVIDERS: Visit Provider Physician Assistant Medical
DX: E11.9 Type 2 diabetes mellitus without complications (principal); E78.5 Hyperlipidemia, unspecified
CPT/HCPCS: 36415; 80061; 82565; 82947; 83036; 84450; 84460; 85049; 99212

== ENCOUNTER 2025-05-08 11:09 | Outpatient (AMB) | payer MEDICARE, BC, SELFPAY ==
--- OUTSIDE RECORDS SUMMARY | 2024-03-19 06:40 | XMS_ITS ---
Author Organization [facility] Address [address] [address] Care Team Providers Care Provider Relations Consultant Name Role Phone JUAN ROSS, OTIS Primary Care Provide Oneida Carter Unavailable [phone] REASON FOR VISIT Annual PROJECT LANDSCAPE ARCHITECT Physical Encounters Encounter Location Date Provider Diagnosis [facility] [address] [address] 03/19/2024 Oneida Gomez Plan Of Treatment No Information Progress Notes * CHIOMA ENCARNACIONINDOB: 8 (64 yo F)Acc No.[id number]:03/19/2024 PROGRESS NOTES Patient: JAKOB MEEK Appointment Provider: Taryn Gomez M.D. :1960 A ge:63 Y S ex:Female Date:03/19/2024 Address:[address] [place], [place] [id number] Pcp:OTIS MARTINEZ MD Subjective: * Chief Complaints: * 1 . Annual PROJECT LANDSCAPE ARCHITECT Physical. * Medical History: Objective: * Vitals: Assessment: Plan: * Treatment: * Images: Billing Information: * Visit Code: * Procedure Codes: * Electronic signature of Karl Gomez MD on 05/08/2025 at 12:52 PM EDT Sign off status: Pending * Appointment Provider: Taryn Gomez M.D. Date: 0 03/19/2024 Generated for Printi tereso/Fakacy/eTransmitting on: 0 05/08/2025 12:52 PM EDT
--- OUTSIDE RECORDS SUMMARY | 2024-08-22 06:30 | XMS_ITS ---
Author Organization [facility] Address [address] [address] Care Team Providers Care Plumber Assistant Name Role Phone JUAN ROSS, OTIS Primary Care Provide Oneida Carter Unavailable [phone] REASON FOR VISIT Annual (YELLOW FORM DONE) Encounters Encounter Location Date Provider Diagnosis [address] [address] 08/22/2024 Oneida Gomez Plan Of Treatment No Information Progress Notes * CHIOMA ENCARNACIONINDOB: 8 (64 yo F)Acc No.[id number]:08/22/2024 PROGRESS NOTES Patient: JAKOB MEEK Appointment Provider: Taryn Gomez M.D. :1960 A ge:64 Y S ex:Female Date:08/22/2024 Address:[address] [place], [place] [id number] Pcp:OTIS MARTINEZ MD Subjective: * Chief Complaints: * 1 . Annual (YELLOW FORM DONE). * Medical History: Objective: * Vitals: Assessment: Plan: * Treatment: * Images: Billing Information: * Visit Code: * Procedure Codes: * Electronic signature of Karl Gomez MD on 05/08/2025 at 12:52 PM EDT Sign off status: Pending * Appointment Provider: Taryn Gomez M.D. Date: 0 08/22/2024 Generated for Printi ng/Farylang/eTransmitting on: 0 05/08/2025 12:52 PM EDT
--- NOTE | 2025-05-08 11:10 | A.OFFVIS_ITS ---
Vital Signs 05/08/25 11:12 Height 5 ft 2.5 in Weight 145 lb 8.081 oz BMI 26.2 BP 102/62 Blood Pressure Location Rt brachial Position Sitting Pulse 80 Pulse Source Pulse Oximeter Intake Visit Reasons: Type II diabetes Intake Note: Patient present today to follow up on Type 2 Diabetes Mellitus. Last Diabetic Eye exam: 05/2024, Glaucoma Last Podiatry Visit: Does not see a Regional Liaison Random Glucose: 86 mg/dL HgA1C: 5.2%, 05/08/2025 Automatic Casting Machine Operator Required: No Accompanied by: Self / Same As Patient Allergies Penicillins Allergy (Mild, Verified 05/08/25 11:19) Unknown Medication List - Last Reconciled 05/08/25 by PRINCE Mcneal aspirin (Adult Low Dose Aspirin) 81 mg PO DAILY blood sugar diagnostic (StorrzTouch Verio test strips) Use as directed to check blood glucose once daily for Type II diabetes mellitus. blood-glucose meter (StorrzTouch Verio Flex Meter) Use as directed to check blood glucose once daily for Type II diabetes mellitus. brimonidine 0.2% drps ophthalmic (eye) dorzolamide-timolol 22.3-6.8 mg/mL ophthalmic (eye) esomeprazole magnesium (Nexium) 20 mg PO DAILY fenofibrate 160 mg PO DAILY gabapentin 600 mg PO BID gabapentin 300 mg PO BEDTIME glucose (Dex4 Glucose) 16 grams (4 x 4 gram) PO Q15M PRN lancets (StorrzTouch Delica Plus Lancet) Use as directed to check blood glucose once daily for Type II diabetes mellitus. ondansetron HCl 4 mg PO Q8H PRN semaglutide (Rybelsus) 7 mg PO DAILY HPI Comments Details: This is a 64-year-old female with a past medical history of type 2 diabetes, hypertriglyceridemia, vitamin-D deficiency, cervical spondylosis and obesity presenting for diabetic management. She was diagnosed with diabetes about 7 years ago. She has a family history of diabetes (PGF and paternal aunt). No known family history of type 1 diabetes. Her on 06/20/24 from sarcoma. He had 5 different cancer battles in his lifetime. They were over 30 years. [place] had [place]. She has a daughter and cares for her daughter's Barbadian bulldog. She is walking for exercise. Hemolgobin a1c 5.2%. All readings she wrote down from her glucometer are within target range. See scanned report. Current medication regimen: Rybelsus 7 mg. Metformin discontinued after Rybelsus was increased. Compliance issues: She is compliant. She endorses some nausea that comes and goes on rybelsus. She drinks alcohol rarely. She does not smoke. She's lost about 8 pounds since her last visit. She is very happy with her progress. Hypoglycemia symptoms: None Hyperglycemia symptoms: None Eye exam: Scheduled next week. She goes to [facility]. She has no ophthalmic complications from diabetes. Microvascular complications: none Macrovascular complications: none Hypertension: No Hypertriglyceridemia treated with fenofibrate. Last LDL 103 with a goal of less than 100. ROS: Constitutional: No unexplained weight loss Gastrointestinal: No anorexia, nausea, vomiting or diarrhea. No abdominal pain. Neurologic: No headache, dizziness, syncope, unilateral weakness, ataxia, numbness or tingling in the extremities. Skin: No rash or wounds. Physical exam: Constitutional: Alert, in no distress. Respiratory: Clear to auscultation. Cardiovascular: S1 S2 regular. No murmurs. [facility] Medical History Hypertriglyceridemia Type II diabetes mellitus Encounter for screening for diabetes mellitus Vitamin D deficiency Screen for colon cancer Pain in upper limb Obesity, class 1 Hyperlipidemia Diabetes Cervical spondylosis without myelopathy Surgical History History of surgery Hx of shoulder surgery Family History Father No problems noted. Mother No problems noted. Social History Alcohol intake: current Alcohol intake frequency: holidays/special occasions only Physical Exam Vital Signs: Last Vital Signs Pulse 80 05/08/25 11:12 BP 102/62 05/08/25 11:12 BMI result Body Mass Index 26.2 Results AMB Hemoglobin A1c AMB Hemoglobin A1c 5.2 % Last Edit by JAMES Story on 05/08/25 11:24 Results Reviewed Results Reviewed: Laboratory Last Values Glucose (Clinic) 86 mg/dL (60-115) 05/08/25 11:14 Hgb A1c (Clinic) 5.2 % (4.0-6.0) 05/08/25 11:22 Assessment & Plan Assessment & Plan (1) Type II diabetes mellitus: Code(s): E11.9 - Type 2 diabetes mellitus without complications Category: Medical Qualifiers: Diabetes mellitus complication status: without complication Diabetes mellitus intermediate insulin use: without intermediate use Qualified Code(s): E11.9 - Type 2 diabetes mellitus without complications Plan In summary this is a 64-year-old female with controlled type 2 diabetes with no known complications. Her hemoglobin A1c is excellent. She has no episodes of hypoglycemia. I offered to reduce her dose of Rybelsus, but she would like to continue the current dosage unless she develops side effects or low blood sugar. Discussed pathophysiology of Type II Diabetes Mellitus with the patient in detail.? I explained the intermediate risks and complications associated with uncontrolled diabetes including nephropathy, neuropathy, peripheral vascular disease, retinopathy, increased risk of heart disease and stroke.? Discussed lifestyle modification with the patient. Recommended Mediterranean diet. She will have her lipid profile rechecked. Follow up in 6 months for type 2 diabetes. Orders: Orders Lipid Panel Today E11.9 - Type 2 diabetes mellitus without complications, E78.5 - Hyperlipidemia, unspecified Basic Metabolic Panel Today E11.9 - Type 2 diabetes mellitus without complications AMB Hemoglobin A1c Today E11.9 - Type 2 diabetes mellitus without complications Medications: New glucose (Dex4 Glucose) until blood sugar is >70 16 grams (4 x 4 gram) PO Q15M PRN 30 tabs 3RF hypoglycemia Refilled semaglutide (Rybelsus) 7 mg PO DAILY 90 tabs 1RF Coding Level of Care Code Est Pt Level 4 (13632) Complex EM visit Add On G2211 Diagnoses Type 2 diabetes mellitus without complication, without long-term current use of insulin E11.9 Diabetes mellitus complication status: without complication Diabetes mellitus intermodal customer service insulin use: without intermediate use
[2025-05-08 11:12] VITALS: BP 102/62; PULSE 80; BMI 26.2
[2025-05-08 11:19] LABS: Glucose, Whole Blood 86 mg/dL (60-115)
--- OUTSIDE RECORDS SUMMARY | 2025-05-08 12:52 | XMS_ITS | Encounter Summary ---
Author Organization [facility] Address [address] [place] [phone] Phone Care Team Providers Care Real Estate Listing Consultant Name Role Phone Pcp, Not Required Primary Care Provider Unavaila ble Encounter Details Date Type Department Care Team (Late st Contact Info) Description 09/29/2020 Procedure Pass [facility] [address] [place] [address] Social History Tobacco Use Types Packs/Day Years Used Date Smoking Tobacco: Never Smokeless Tobacco: Never Alcohol Use Standard Drinks/Week Comments Yes 0 (1 standard drink = 0.6 oz pur e alcohol) rarely Comments Unknown Sex and Gender Information Value Date Recorded Sex Assigned at Not on file Legal Sex Female 6:57 PM EST Gender Identity Not on file Sexual Orientation Not on file documented as of this encounter Plan of Treatment Not on file documented as of this encounter Visit Diagnoses Not on filedocumented in this encounter Care Teams Real Estate Listing Consultant Relationship Specialty Start Date End Date Pcp, Not Required [address] [place] [address] PCP - General 09/05/13 documented as of this encounter Additional Source Comments The information contained in this document represents components of the legal health record. It is not the complete legal health record.[facility]
--- OUTSIDE RECORDS SUMMARY | 2025-05-08 12:52 | XMS_ITS | Encounter Summary ---
Author Organization [facility] Address [address] [place] [phone] Phone Care Team Providers Care Optical Fabricator Name Role Phone Pcp, Not Required Primary Care Provider Unavaila ble Encounter Details Date Type Department Care Team (Late st Contact Info) Description 11/28/2016 [facility] Touch-Writer. [address] [place] [address] Love Clark [place] Social History Tobacco Use Types Packs/Day Years Used Date Smoking Tobacco: Never Comments Unknown Sex and Gender Information Value Date Recorded Sex Assigned at Not on file Legal Sex Female 6:57 PM EST Gender Identity Not on file Sexual Orientation Not on file documented as of this encounter Plan of Treatment Not on file documented as of this encounter Visit Diagnoses Not on filedocumented in this encounter Care Teams Optical Fabricator Relationship Specialty Start Date End Date Pcp, Not Required [address] [place] [id number] PCP - General 09/05/13 documented as of this encounter Additional Source Comments The information contained in this document represents components of the legal health record. It is not the complete legal health record.[facility]
--- OUTSIDE RECORDS SUMMARY | 2025-05-08 12:53 | XMS_ITS | Patient Health Record ---
Author Organization [employer] [facility] Address [address] [place] [address] Care Team Providers Care Silver Recovery Operator Name Role Phone JUAN ROSS, OTIS Primary Care Provide Oneida Carter Unavailable [phone] Allergies Allergen (clinical drug ingredient) Drug/Non Drug Allergy documented on EMR Reaction Allergy Type Onset Date Status Penicillin Rash/Joint Aches Drug Allergy Active Results Component Value Reference Range Notes PDF Report Reviewed date:12/17/2024 01:35:11 AM Interpretation: Performing Lab:[facility], [address], [address], [place], Phone - [phone], Director - [facility] Notes/Report: No. of containers..01 ThinPrep Vial Other..............Post Menopausal Dates / Results....07/10/2017 Clinical Information:vag/cerv [id number] IGP No Culture 30 Plus Reviewed date:12/17/2024 01:36:18 AM Interpretation: Performing Lab:[facility], [address], [address], [place], Phone - [phone], [facility] - [facility] Notes/Report: Clinical Information:vag/cerv [id number] Dates / Results....07/10/2017 Other..............Post Menopausal No. of containers..01 ThinPrep Vial DIAGNOSIS: NEGATIVE FOR IN TRAEPITHELIAL LESION OR MALIGNANCY. Specimen adequacy: Satisfactory for evaluation. Endocervical and/or squamous metaplastic cells (endocervical component) are present. Clinician provided ICD10: Z0 1.419 Performed by: Dejon feldman, Air Brakes Inspector (ASCP) . . Note: The Pap smear [...] 1 TABLET BY MOUTH TWICE A DAY Oral; Duration: 30 Days Also 300mg Active Brimonidine Tartrate 0.2 % INSTILL 1 DROP INTO BOTH EYES 3 TIMES A DAY Ophthalmic; Duration: 50 Days Active Fenofibrate Pt not sure of dose Active Rybelsus 7 MG TAKE 1 TABLET BY MOUTH ONCE DAILY Oral; Duration: 90 Days Active Social History Tobacco Use: [...] 12/11/2024 Encounters Encounter Location Date Provider Diagnosis [address] [id number] 12/11/2024 Oneida Gomez Encounter for gynecological examination [...] Coverage End Date MEDICARE [address] [facility] [place], [place] [id number] JAKOB ENCARNACION Self - patient is the insured 3 [employer] [place] [address] [place] [address] [id number] JAKOB ENCARNACION Self - patient is the [...]
--- OUTSIDE RECORDS SUMMARY | 2025-05-08 12:53 | XMS_ITS | Encounter Summary ---
Author Organization [facility] Address [address] [place] [address] Phone Care Team Providers Care Prototype Fabricator Name Role Phone Pcp, Not Required Primary Care Provider Unavaila ble Reason for Visit * Reason Comments Medication Refill Encounter Details Date Type Department Care Team ([facility] st Contact Info) Description 11/23/2020 Refill [facility] [address], [address] [place] [address] Rosana Aguilar PA-C [address] [facility] Jareth [address] [place] [phone] [email or web address] Medication Refill Social History Tobacco Use Types Packs/Day Years [...] documented as of this encounter Visit Diagnoses Diagnosis Neuralgia Unspecified neuralgia, neuritis, and radiculitis documented in this encounter Care Teams Prototype Fabricator Relationship Specialty Start Date End Date Pcp, Not Required [address] [place] [address] PCP - General 09/05/13 documented as of this encounter Additional Source Comments The information contained in this document represents components of the legal health record. It is not the complete legal health record.[facility]
--- OUTSIDE RECORDS SUMMARY | 2025-05-08 12:53 | XMS_ITS | Encounter Summary ---
Author Organization [facility] Address [address] [place] [phone] Phone Care Team Providers Care Truck Driver Name Role Phone Pcp, Not Required Primary Care Provider Unavaila ble Encounter Details Date Type Department Care Team (Late st Contact Info) Description 07/20/2021 Procedure Pass [facility] [address] [place] [phone] Social History Tobacco Use Types Packs/Day [...] on filedocumented in this encounter Care Teams Truck Driver Relationship Specialty Start Date End Date Pcp, Not Required [address] [place] [phone] PCP - General 09/05/13 documented as of this encounter Additional Source Comments The information contained in this document represents components of the legal health record. It is not the complete legal health record.[facility]
--- OUTSIDE RECORDS SUMMARY | 2025-05-08 12:53 | XMS_ITS | Clinical Summary ---
Author Organization [facility] Address [address] [address] Phone Care Team Providers Care Concession Attendant Name Role Phone Pcp, Not Required Primary Care Provider Unavaila ble Allergies Active Allergy Reactions Criticality Noted Date Comments Penicillins Rash,Joint Pain Medium 07/24/2011 Converted from Generic Allergy: Penicillin Converted from Drug Class Allergy: Penicillins Medications fenofibrate (LOFIBRA) 160 MG tablet Take 160 mg by mouth nightly at bedtime. Active esomeprazole (NEXIUM) 20 MG capsule Take 20 mg by mouth nightly at bedtime. Active cholecalciferol (VITAMIN D3) 5,000 unit tablet Take 1,000 Units by mouth daily. Active HYDROcodone-xavier taminophen (NORCO) 5-325 mg per tablet Take 1 tablet by mouth every 4 (four) hours as needed for pain (specific location in comments). Partial fill ok. Post-op pain medication. 10 tablet 1 Active Additional Information Patient not taking.Reported on 09/29/2020 NEURONTIN 600 mg tablet Take 1 tablet (600 mg total) by mouth 2 (two) times a day. 60 tablet 11 1 Active NEURONTIN 300 mg capsuleIndicati ons:Neuralgia TAKE 1 CAPSULE BY MOUTH EVERY EVENING 30 capsule 11 2 Active Active Problems Problem Noted Date Diagnosed Date Pain in upper limb 12/10/2012 Overview (10/03/2014): Pain in upper limb - right Social History Tobacco Use Types Packs/Day Years Used Date Smoking Tobacco: Never Smokeless Tobacco: Never Alcohol Use Standard Drinks/Week Comments Yes 0 (1 standard drink = 0.6 oz pur e alcohol) rarely Education Answer Date Recorded Are you interested in more education? Not on ny e 12/21/2022 Are you concerned about learning? Not on file 12/21/2022 No 12/21/2022 No 12/21/2022 Digital Access Answer Date Recorded No 01/07/2023 No 01/07/2023 No 01/07/2023 Reliable internet access at home? Not on file 01/07/2023 Device with a working camera? Not on file Comments Unknown Sex and Gender Information Value Date Recorded Sex Assigned at Not on file Legal Sex Female 6:57 PM EST Gender Identity Not on file Sexual Orientation Not on file Last Filed Vital Signs Vital Sign Reading Time Taken Comments Blood Pressure 134/87 09/29/2020 11:00 AM EST Pulse 76 09/29/2020 11:00 AM EST Temperature 36.6 C (97.8 F) 09/29/2020 10:40 AM EST Respiratory Rate 16 09/29/2020 11:00 AM EST Oxygen Saturation 96% 09/29/2020 11:00 AM EST Inhaled Oxygen Concentration - - Weight 84.4 kg (186 lb) 09/15/2020 11:49 AM EST Height 157.5 cm (5' 2 ) 09/15/2020 11:49 AM EST Body Mass Index 34.02 09/15/2020 11:49 AM EST Plan of Treatment Health Maintenance Due Date Last Done Comments Adult Td,Tdap Booster 1958 LIPID PANEL 1958 DEPRESSION SCREENING 1970 HEPATITIS C SCREENING 1976 MAMMOGRAM 1998 COLOGUARD 2003 COLONOSCOPY 2003 COLORECTAL CANCER SCREENING 2003 FIT TEST 2003 FOBT 2003 SIGMOIDOSCOPY 2003 VIRTUAL COLONOSCOPY 2003 PNEUMOCOCCAL VACCINES (50+ years) (1 of 1 - PCV) 2008 OSTEOPOROSIS SCREENING INITI AL (ONE-TIME) 2023 INFLUENZA VACCINE (#1) 2025 COVID-19 VACCINE (2 - 2024-2 6 season) 2025 11/08/2020 RSV VACCINE (1 - 1-dose 75+ series) 2033 ZOSTER VACCINES Completed 09/30/2019, 05/14/2019 SMOKING STATUS SCREENING (On ce After 26 Yrs) Completed 11/11/2020 HEPATITIS A VACCINES Aged Out No long er eligible based on patient's age to complete this topic HIB VACCINES Aged Out No longer eligi ble based on patient's age to complete this topic MENINGOCOCCAL VACCINES (ACWY) Aged Out No longer eligible based on patient's age to complete this topic MENINGOCOCCAL VACCINES (B) Aged Out N o longer eligible based on patient's age to complete this topic Medical Devices Implanted Type Area Manager Metrology Device Identifier Shelf Expiration Date Model / Serial / Lot Screw In Shoulder Insurance [place] [employer] [facility] [place] [facility] [place] [place] [place] [place] [address] [facility] [place] [facility] [place] Care Teams Concession Attendant Relationship Specialty Start Date End Date Pcp, Not Required [address] [place] [phone] PCP - General 09/05/13 Additional Source Comments The information contained in this document represents components of the legal health record. It is not the complete legal health record.[facility]
== END 2025-05-08 11:38 | disposition home or self-care (01) ==
LOC: HO.ENCR 11:09
PROVIDERS: PCP Internal Medicine; Visit Provider Physician Assistant Medical
DX: E11.9 Type 2 diabetes mellitus without complications (principal)

== ENCOUNTER → 2025-05-08 11:09 | Outpatient (BNVA) | payer MEDICARE, BC, SELFPAY | PROVIDERS: PCP Internal Medicine; Visit Provider Physician Assistant Medical | DX: E11.9 Type 2 diabetes mellitus without complications (principal); E78.5 Hyperlipidemia, unspecified | CPT/HCPCS: 82947; 83036; 99212 ==